=== PATIENT | female | born 1950 | race Caucasian/White ===

== ENCOUNTER 2018-09-26 05:46 | Observation (INO) | payer MEDICARE, BC ==
[~2018-09-26] VITALS: Ht 157.5 cm; Wt 73.0 kg
[2018-09-26] VITALS (30 sets, daily range): BP systolic 89–139; BP diastolic 46–78; PULSE 52–77; RESP 13–25; Ht 157.5 cm; Wt 73.0 kg
[~2018-09-26 05:46] MED LIST: ALPR0.25 PO; ASPI-817 PO; ASPI-831 PO; BIOT5000 PO; CALCIUM + D3 PO; CRAN300T PO; CYCL10TA7 PO; DOCU-144 PO; GLUC15006 PO; LACT1CAP28 PO; MELO7.5T38 PO; PRIMROSE OIL PO; SIMV20TA2 PO; [UNRECOGNIZED DRUG - OTHER] PO
[2018-09-26] MEDS ORDERED: CEFAZOLIN 2 GM/50 ML (PMX) 50 ML IVPB SCH (05:51)
[2018-09-26] MEDS ORDERED: LACTATED RINGER'S 1,000 ML IV* SCH (06:00)
[2018-09-26] MEDS ORDERED: POLYMYXIN/BACITRACIN 1L IRRIG ONE (06:45)
[2018-09-26] MEDS ORDERED: GELATIN SIZE 100 SPONGE ONE (06:45)
[2018-09-26] MEDS ORDERED: BUPIVACAINE 0.25% (MPF) 30 ML INJ ONE (06:45)
[2018-09-26] MEDS ORDERED: THROMBIN (BOVINE) 5,000 UNIT VIAL TP ONE (06:45)
--- NOTE | 2018-09-26 06:54 | PN ---
Date/Time of Note Date/Time of Note DATE: 09/26/18 TIME: 06:53 Assessment/Plan Lines/Catheters IV Catheter Type (from Nrsg): Peripheral IV Subjective 24 Hr Interval Summary The patient is postop day #2 following a multilevel laminectomy from T4-T11 for excision of multiple intraspinal extradural cysts. She is resting comfortably in bed. Neurovascular structures are intact distally. Her Hemovac drainage is minimal, and I will discontinue her Hemovac later this morning and change her dressing. She made reasonable progress with physical therapy yesterday, and I anticipate she may be cleared for discharge later today. She has been given strict discharge precautions and instructions as well as follow-up arrangements. She is afebrile. Exam/Review of Systems Vital Signs Vitals Vital Signs Date Temp Pulse Resp B/P (MAP) Pulse Ox O2 O2 Flow FiO2 Time Delivery Rate 09/26/18 97.8 74 16 139/78 100 Room Air 06:29 (98) PEDRO PABLO BRASHER MD Sep 26, 2018 06:54
--- NOTE | 2018-09-26 06:55 | HPN ---
Date/Time of Note Date/Time of Note DATE: 09/26/18 TIME: 06:55 Interval H&P Admission Note Pt. seen H&P reviewed: No system changes PEDRO PABLO BRASHER MD Sep 26, 2018 06:55
--- NOTE | 2018-09-26 07:01 | PREAC ---
Date/Time of Note Date/Time of Note DATE: 09/26/18 TIME: 06:59 Anesthesia Eval and Record Evaluation Time Pre-Procedure Interview DATE: 09/26/18 TIME: 06:59 Age 68 Sex female NPO: 8 hrs Preoperative diagnosis Lumbar Radiculopathy Planned procedure Lumabr 3-4 Decompression and laminectomy Past Medical History Past Medical History: Includes Cardio: Dyslipidemia Pulm: Asthma GI: Obesity Surgery & Anesthesia Issues No known issue Meds Anticoagulation: No Beta Kisha within 24 hr: No Reason Beta Kisha not given: Pt. not on B-Kisha Reported Medications Alprazolam* (Xanax*) 0.25 Mg Tablet, 0.25 MG PO QHS PRN for SLEEP, TAB 09/21/18 Cyclobenzaprine Hcl* (Cyclobenzaprine Hcl*) 10 Mg Tablet, 10 MG PO PRN for PAIN, #60 TAB 09/21/18 Meloxicam* (Meloxicam*) 7.5 Mg Tablet, 7.5 MG PO DAILY PRN for PAIN, #30 TAB 09/21/18 Docusate Sodium* (Colace*) 100 Mg Capsule, 100 MG PO QHS, #60 CAP 09/21/18 Lactobacillus Rhamnosus GG (Culturelle) 1 Each Capsule, 1 EACH PO QHS, CAP 09/21/18 Aspirin* (Aspirin* EC) 81 Mg Tablet.dr, 81 MG PO DAILY, TAB 09/21/18 Aspirin (Aspirin) 81 Mg Chew, 81 MG PO DAILY, TAB.CHEW 09/21/18 Cranberry Extract (Cranberry) 300 Mg Tablet, 300 MG PO QHS, TAB 09/21/18 Simvastatin (Simvastatin) 20 Mg Tablet, 20 MG PO QHS, #30 TAB 09/21/18 [Calcium + D3] No Conflict Check, 600 MG PO BID 09/21/18 [[place] Oil] No Conflict Check, 1 PO QAM 09/21/18 [Super Silica Plus] No Conflict Check, 1 TAB PO QAM 09/21/18 Biotin (Biotin) 5,000 Mcg Tab.rapdis, 5000 MCG PO QAM 09/21/18 Glucosamine Hcl (Glucosamine Hcl) 1,500 Mg Tablet, 1500 MG PO QAM, TAB 09/21/18 Current Medications Lactated Ringer's 1,000 ml @ 0 mls/hr Q0M IV* ; Start 09/26/18 at 06:00 Meds reviewed: Yes Allergies Coded Allergies: No Known Drug Allergies (Verified Allergy, Unknown, 09/21/18) Allergies Reviewed: Yes Labs/Studies Labs Reviewed: Reviewed by anesthesiologist Blood Bank Test 09/26/18 05:39 Blood Product Summary Counts test: N/A Studies: ECG (n/a), CXR (n/a) Pre-procedure Exam Last vitals Vital Signs Date Temp Pulse Resp B/P (MAP) Pulse Ox O2 O2 Flow FiO2 Time Delivery Rate 09/26/18 97.8 74 16 139/78 100 Room Air 06:29 (98) Airway: Adequate mouth opening, Adequate thyromental dist Mallampati: Mallampati II Teeth: Normal Lung: Normal Heart: Normal ASA Physical Status ASA physical status: 2 Emergency: None Planned Anesthetic General/MAC: ETT Planned Pain Management Parenteral pain med Pre-operative Attestations Prior to commencing anesthesia and surgery, the patient was re-evaluated, there was verification of: *The patient's identity *The results of appropriate recent lab work and preoperative vital signs *The above evaluation not changing prior to induction *Anesthetic plan, risk benefits, alternative and complications discussed with patient/family; questions answered; patient/family understands, accepts and wishes to proceed. KYRA CABRERA MD Sep 26, 2018 07:01
[2018-09-26] MEDS ORDERED: MIDAZOLAM 1 MG/ML 2 ML INJ ONE (07:04)
[2018-09-26] MEDS ORDERED: ROCURONIUM 50 MG INJ ONE (07:04)
[2018-09-26] MEDS ORDERED: PROPOFOL 20 ML ONE (07:04)
[2018-09-26] MEDS ORDERED: METOCLOPRAMIDE 10 MG INJ ONE (07:15)
[2018-09-26] MEDS ORDERED: ONDANSETRON 4 MG INJ ONE (07:15)
[2018-09-26] MEDS ORDERED: DEXAMETHASONE 4 MG/ML 5 ML INJ ONE (07:15)
[2018-09-26] MEDS ORDERED: PHENYLephrine (100 MCG/ML) 5ML SYG ONE (07:17)
[2018-09-26] MEDS ORDERED: HETASTARCH 6% NACL 500 ML ONE (08:16)
[2018-09-26] MEDS ORDERED: NEOSTIGMINE 10 MG INJ ONE (08:20)
[2018-09-26] MEDS ORDERED: GLYCOPYRROLATE 0.4 MG INJ ONE (08:20)
--- NOTE | 2018-09-26 09:22 | PAC ---
Date/Time of Note Date/Time of Note DATE: 09/26/18 TIME: 09:22 Post-Anesthesia Notes Post-Anesthesia Note Last documented vital signs Vital Signs Date Temp Pulse Resp B/P (MAP) Pulse Ox O2 O2 Flow FiO2 Time Delivery Rate 09/26/18 97.8 74 16 139/78 100 Room Air 09:29 (98) Activity: WNL Respiratory function: WNL Cardiovascular function: WNL Mental status: Baseline Pain reasonably controlled: Yes Hydration appropriate: Yes Nausea/Vomiting absent: Yes KYRA CABRERA MD Sep 26, 2018 09:22
[2018-09-26] MEDS ORDERED: hydrALAzine 20 MG INJ IV PRN (09:30)
[2018-09-26] MEDS ORDERED: OXYCODONE/ACETAMINOPHEN (5/325) TAB PO PRN ×2 (09:30)
[2018-09-26] MEDS ORDERED: ONDANSETRON 4 MG INJ IV PRN ×2 (09:30→10:00)
[2018-09-26] MEDS ORDERED: ALBUTEROL 0.083% (NEB) 2.5 MG/3 ML AMP HHN PRN (09:30)
[2018-09-26] MEDS ORDERED: DIPHENHYDRAMINE 50 MG INJ IV PRN (09:30)
[2018-09-26] MEDS ORDERED: FENTAnyl 50 MCG/ML VIAL IV PRN ×3 (09:30)
[2018-09-26] MEDS ORDERED: LABETALOL HCL 20MG INJ IV PRN (09:30)
[2018-09-26] MEDS ORDERED: METOCLOPRAMIDE 10 MG INJ IV PRN (09:30)
[2018-09-26] MEDS ORDERED: MEPERIDINE 25 MG INJ IV PRN (09:30)
[2018-09-26] MEDS ORDERED: HYDROmorphONE 1 MG/5 ML IV SYRINGE IV PRN ×3 (09:30)
[2018-09-26] MEDS ORDERED: ALPRAZOLAM 0.25 MG TAB PO PRN (09:30)
[2018-09-26] MEDS ORDERED: EPHEDrine SULFATE 50 MG/5 ML SYG IV PRN (09:30)
--- NOTE | 2018-09-26 09:48 | SIPON ---
Date/Time of Note Date/Time of Note DATE: 09/26/18 TIME: 09:41 Operative Report Preoperative Diagnosis Lumbar spinal stenosis at L3 and L4 Postoperative Diagnosis Same Operation/Procedure Performed Central decompressive laminectomy at L3 Central decompressive laminectomy at L4 Medial facetectomy and foraminotomy L3-4 and L4-5 bilaterally Cosmetic wound closure (6 cm) Lateral localizing lumbar radiographs (2) Intraoperative nerve monitoring (2.5 hours) Surgeon see signature line assistant attorney general Nithya Bright INSTALLATIONS INSPECTOR Anesthesia: general Estimated blood loss: 100 - 150 ml's Transfusion Required none Specimen Spinous process L3 and L4 Grafts/Implants none Complications none PEDRO PABLO BRASHER MD Sep 26, 2018 09:48
[2018-09-26] MEDS ORDERED: HYDROCODONE/APAP (5/325) TAB PO PRN ×2 (10:00)
[2018-09-26] MEDS ORDERED: AL HYDROX/MG HYDROX/SIMETH 30 ML CUP PO PRN (10:00)
[2018-09-26] MEDS ORDERED: DIAZEPAM 5 MG TAB PO PRN (10:00)
[2018-09-26] MEDS ORDERED: BETHANECHOL 25 MG TAB PO PRN (10:00)
[2018-09-26] MEDS ORDERED: NALOXONE (0.4 MG/ML) INJ IV PRN (10:00)
[2018-09-26] MEDS ORDERED: HYDROmorphONE 0.2 MG/ML PCA IV SCH (10:00)
[2018-09-26] MEDS ORDERED: CEPASTAT LOZENGE MT PRN (10:00)
[2018-09-26] MEDS ORDERED: DIPHENHYDRAMINE 50 MG CAP PO PRN (10:00)
[2018-09-26] MEDS ORDERED: PROCHLORPERAZINE 10 MG TAB PO PRN (10:00)
[2018-09-26] MEDS ORDERED: NACL 0.9% 3 ML SYG IV SCH (10:00)
[2018-09-26] MEDS ORDERED: TRIMETHOBENZAMIDE 100 MG/ML VIAL IM PRN (10:00)
[2018-09-26] MEDS ORDERED: ZOLPIDEM 5 MG TAB PO PRN (10:00)
[2018-09-26] MEDS ORDERED: DIAZEPAM 5 MG/ML SYG IM PRN (10:00)
[2018-09-26] MEDS ORDERED: EPHEDrine 50 MG INJ ONE (10:38)
--- NOTE | 2018-09-26 12:31 | OPR ---
DATE OF OPERATION: 09/26/2018 PREOPERATIVE DIAGNOSIS: Lumbar spinal stenosis at L3 and L4. POSTOPERATIVE DIAGNOSIS: Lumbar spinal stenosis at L3 and L4. OPERATIVE PROCEDURES: 1. Central decompressive laminectomy at L3. 2. Central decompressive laminectomy at L4. 3. Medial facetectomy and foraminotomy at L3 to L4 and L4 to L5 bilaterally. 4. Cosmetic wound closure (6 cm). 5. Lateral localized lumbar radiographs (2). 6. Intraoperative nerve monitoring (2-1/2 hours) SURGEON: Lb Galo MD RISK ANALYST: LOIDA Shabazz ANESTHESIA: General endotracheal. ANESTHESIOLOGIST: lAlan Henderson MD ESTIMATED BLOOD LOSS: 100 mL - none replaced. DRAINS: Two medium Hemovac drains were employed. COMPLICATIONS: None. PERTINENT HISTORY AND PHYSICAL: This is a 68-year-old female with severe back and bilateral leg pain , right greater than left, which have been unrelieved by conservative management. She has undergone a number of diagnostic studies including an MRI of the lumbar spine, which demonstrated a degenerativ e spondylolisthesis at L3 to L4 with severe stenosis at L3 and moderate stenosis at L4. Treatment op tions discussed with the patient, she elected to proceed with surgery. OPERATIVE FINDINGS AT SURGERY: Degenerative spinal disease at L3 to L4 with severe stenosis at L3 an d moderate stenosis at L4 was confirmed. The baseline intraoperative nerve monitoring revealed a dec rease in the L2 potentials bilaterally of 10%, the L3 potentials bilaterally of 20%, the L4 potential on the left of 40%, the L4 potential on the right of 20% and the L5 potentials were down 10% bilater ally. These all returned to normal at the completion of surgery. OPERATIVE PROCEDURE IN DETAILS: With the patient in supine position after satisfactory induction of general endotracheal anesthesia by Dr. Henderson, the patient was turned to the prone kneeling position on the Mary Ann frame. All pressure points were carefully padded. The back was prepped and draped in usual sterile fashion. Athrombic pumps were applied to the legs below the knees to prevent venous stasis during and after procedure. An indwelling Green catheter was also placed preoperatively to f acilitate bladder drainage during and after procedure. Two spinal needles were placed next to what w as felt to be the L3 and L4 spinous processes. Lateral roentgenograms were taken which confirmed liz tomic localization. A 6 cm incision then carried midline from L3 to L4 through skin and subcutaneous tissue to deep fascia after skin was infiltrated with 0.25% Marcaine without epinephrine for postope rative analgesia. Superficial retractors were placed and hemostasis was secured with electrocautery. Throughout the procedure, copious amounts of antibacterial irrigating solution were used to periodi reno irrigate the wound. The fascia was incised in midline with a hot knife and a bilateral subperi osteal dissection was carried out from L3 to L4. Deep retractors were placed and deep hemostasis was secured with electrocautery. A second intraoperative radiograph was taken with Lucas clamps placed in what was felt to be the spinous process of L3 and L4. This was confirmed with second x-ray. A c entral decompressive laminectomy at L4 and L3 was then carried out using a Roberth right-angle bone r ongeur, Leksell rongeur, Kerrison punches and curettes. Ligamentum flavum was excised with sharp dis section. The operating microscope was moved into place. A medial facetectomy and foraminotomy was t hen accomplished at L3 to L4 and L4 to L5 bilaterally using a small hand osteotome, mallet, Kerrison punches and curettes. The epidural hemostasis was secured with bipolar electrocautery on low setting . The anesthesiologist was asked to perform a Valsalva maneuver at 40 mmHg and no spinal fluid leak was noted. The wound was then closed in layers over 2 medium Hemovac drains, one below the fascia, o ne above the fascia using #1 Vicryl [id number] approximating #1 Stratafix sutures on deep paralu mbar musculature and deep fascia of back, 2-0 Stratafix sutures in subcutaneous tissue and a 4-0 Vicr yl subcuticular cosmetic closing suture on the skin. Dermabond and sterile compressive dressings wer e applied. The patient having tolerated procedure well, was then turned to the supine position onto her bed and extubated by Dr. Henderson. She was transported to the recovery room in satisfactory condi tion. At the conclusion of procedure, sponge, instrument, and needle counts were all correct. NEED FOR COMPUTER ART INSTRUCTOR: During this spinal surgical procedure, my licensed loan officer assistant was used to retract and protect the spinal nerves and dural sac. My licensed loan officer assistant also employed the suction catheters to laura marshal blood from the surgical field to improve visualization of the neural structures. The licensed loan officer assistant was medically necessary to facilitate the completion of the surgery in a safe and expeditious manner. State of [place] regulations, as well as hospital bylaws, preclude the use of non-licensed health care personnel such as operating room technicians, to perform these functions. Throughout the procedure, neural monitoring was carried out by [employer] using EMG, SSEP and M EP monitoring of the L2, L3, L4, L5 and S1 nerve roots bilaterally along with spinal cord potentials. These were interpreted in real time by Dr. Bar Hernandes. Dictated By: LB GALO MD TM/NTS Conf#: [id number] DID#: [id number] CC: LOLA WHITLEY MD;*[facility]*
--- NOTE | 2018-09-26 13:38 | CONS ---
Assessment/Plan Assessment/Plan Problems: (1) Pure hypercholesterolemia Status: Chronic Comment: Cont. statin daily (2) Constipation Status: Chronic Comment: Cont. colace, miralax, culturelle. Methylnaltrexone prn (3) Insomnia Status: Chronic Comment: Cont. alprazolam. (4) Personal history of other venous thrombosis and embolism Status: Chronic Comment: Hold all forms of heparin. Use SCD's continuously and consider continuing ASA if ok w/ primary team (5) Spinal stenosis of lumbar region with radiculopathy Status: Resolved Comment: Per primary team (6) Status post lumbar laminectomy Status: Acute Comment: Doing well POD#0. PT and pain control per primary team. Pt. w/ h/o DVT so SCD's must be maintained. Cannot get LMWH at this time while post-op. Will d/w primary team re: continuing on ASA or if needs to be held. Consultation Date/Type/Reason Admit Date/Time Sep 26, 2018 at 05:46 Date of Consultation: Sep 26, 2018 Type of Consult Medicine Reason for Consultation Medical Management Requesting Provider: PEDRO PABLO GALO MD Date/Time of Note DATE: 09/26/18 TIME: 13:30 Hx of Present Illness 68 y/o C F w/ h/o DVT x 3, hyperlipidemia, insomnia, chronic constipation in [facility] [place] until the last 3 years when she developed back pain. Dr. Galo suggesting surgery but pt. resistant. Did not want to have it. However, recently developed BLE weakness and pain. Could not walk through the supermarket or stand for any great length of time. Decided to have lumbar lami as suggested by ortho. Now s/p surgery and POD#0 and doing well. No complaints. Constitutional: no complaints, improved Eyes: no complaints ENT: no complaints Respiratory: no complaints Cardiovascular: no complaints Gastrointestinal: no complaints Genitourinary: no complaints Musculoskeletal: no complaints Neurologic: no complaints Past Medical History Medical History: deep vein thrombosis, high cholesterol Home Meds Reported Medications Alprazolam* (Xanax*) 0.25 Mg Tablet, 0.25 MG PO QHS PRN for SLEEP, TAB 09/21/18 Cyclobenzaprine Hcl* (Cyclobenzaprine Hcl*) 10 Mg Tablet, 10 MG PO PRN for PAIN, #60 TAB 09/21/18 Meloxicam* (Meloxicam*) 7.5 Mg Tablet, 7.5 MG PO DAILY PRN for PAIN, #30 TAB 09/21/18 Docusate Sodium* (Colace*) 100 Mg Capsule, 100 MG PO QHS, #60 CAP 09/21/18 Lactobacillus Rhamnosus GG (Culturelle) 1 Each Capsule, 1 EACH PO QHS, CAP 09/21/18 Aspirin* (Aspirin* EC) 81 Mg Tablet.dr, 81 MG PO DAILY, TAB 09/21/18 Aspirin (Aspirin) 81 Mg Chew, 81 MG PO DAILY, TAB.CHEW 09/21/18 Cranberry Extract (Cranberry) 300 Mg Tablet, 300 MG PO QHS, TAB 09/21/18 Simvastatin (Simvastatin) 20 Mg Tablet, 20 MG PO QHS, #30 TAB 09/21/18 [Calcium + D3] No Conflict Check, 600 MG PO BID 09/21/18 [Homestead Oil] No Conflict Check, 1 PO QAM 09/21/18 [Super Silica Plus] No Conflict Check, 1 TAB PO QAM 09/21/18 Biotin (Biotin) 5,000 Mcg Tab.rapdis, 5000 MCG PO QAM 09/21/18 Glucosamine Hcl (Glucosamine Hcl) 1,500 Mg Tablet, 1500 MG PO QAM, TAB 09/21/18 Medications Current Medications Lactated Ringer's 1,000 ml @ 0 mls/hr Q0M IV* ; Start 09/26/18 at 06:00 Alprazolam (Xanax) 0.25 mg QHS PRN PO SLEEP; Start 09/26/18 at 09:30 Aspirin (Aspirin) 81 mg DAILY PO ; Start 09/27/18 at 09:00 Docusate Sodium (Colace) 100 mg QHS PO ; Start 09/26/18 at 21:00 Lactobacillus Acidophilus/ Rhamnosus (Culturelle) 1 cap QHS PO ; Start 09/26/18 at 21:00 Atorvastatin Calcium (Lipitor) 20 mg HS PO ; Start 09/26/18 at 21:00 Hydromorphone HCl (Dilaudid) 0.2 mg PACU PRN IV MILD PAIN 1-3; Start 09/26/18 at 09:30; Stop 09/26/18 at 15:00 Hydromorphone HCl (Dilaudid) 0.4 mg PACU PRN IV MOD PAIN 4-6 Last administered on 09/26/18at 10:06; Admin Dose 0.4 MG; Start 09/26/18 at 09:30; Stop 09/26/18 at 15:00 Hydromorphone HCl (Dilaudid) 0.6 mg PACU PRN IV SEVERE PAIN 7-10; Start 09/26/18 at 09:30; Stop 09/26/18 at 15:00 Fentanyl (Sublimaze) 25 mcg PACU ORDER PRN IV MILD PAIN 1-3; Start 09/26/18 at 09:30; Stop 09/26/18 at 15:00 Fentanyl (Sublimaze) 50 mcg PACU ORDER PRN IV MOD PAIN 4-6 Last administered on 09/26/18at 10:05; Admin Dose 50 MCG; Start 09/26/18 at 09:30; Stop 09/26/18 at 15:00 Fentanyl (Sublimaze) 75 mcg PACU ORDER PRN IV SEVERE PAIN 7-10; Start 09/26/18 at 09:30; Stop 09/26/18 at 15:00 Oxycodone/ Acetaminophen (Percocet (5/ 325)) 1 tab PACU ORDER PRN PO .PAIN 1-5; Start 09/26/18 at 09:30; Stop 09/26/18 at 15:00 Oxycodone/ Acetaminophen (Percocet (5/ 325)) 2 tab PACU ORDER PRN PO .PAIN 6-10; Start 09/26/18 at 09:30; Stop 09/26/18 at 15:00 Ondansetron HCl (Zofran Inj) 4 mg PACU ORDER PRN IV NAUSEA/VOMITING Last administered on 09/26/18at 10:05; Admin Dose 4 MG; Start 09/26/18 at 09:30; Stop 09/26/18 at 15:00 Metoclopramide HCl (Reglan) 10 mg PACU ORDER PRN IV NAUSEA/VOMITING; Start 09/26/18 at 09:30; Stop 09/26/18 at 15:00 Labetalol HCl (Labetalol) 5 mg PACU ORDER PRN IV HIGH BLOOD PRESSURE; Start 09/26/18 at 09:30; Stop 09/26/18 at 15:00 Hydralazine HCl (Apresoline) 5 mg PACU ORDER PRN IV HIGH BLOOD PRESSURE; Start 09/26/18 at 09:30; Stop 09/26/18 at 15:00 Ephedrine Sulfate 5 mg PACU ORDER PRN IV BLOOD PRESSURE SUPPORT Last administered on 09/26/18at 11:05; Admin Dose 5 MG; Start 09/26/18 at 09:30; Stop 09/26/18 at 15:00 Albuterol (Proventil 0.083% (Neb)) 2.5 mg PACU ORDER PRN HHN .WHEEZING; Start 09/26/18 at 09:30; Stop 09/26/18 at 15:00 Meperidine HCl (Demerol) 25 mg PACU ORDER PRN IV .RIGORS; Start 09/26/18 at 09:30; Stop 09/26/18 at 15:00 Diphenhydramine HCl (Benadryl) 25 mg PACU ORDER PRN IV .PRURITUS; Start 09/26/18 at 09:30; Stop 09/26/18 at 15:00 Dextrose/Sodium Chloride 1,000 ml @ 100 mls/hr Q10H IV ; Start 09/26/18 at 10:00 Acetaminophen/ Hydrocodone Bitart ([place] (5/325)) 1 tab Q4H PRN PO .PAIN 1-5; Start 09/26/18 at 10:00; Status Hold Acetaminophen/ Hydrocodone Bitart ([place] (5/325)) 2 tab Q4H PRN PO .PAIN 6-10; Start 09/26/18 at 10:00; Status Hold Cefazolin Sodium 50 ml @ 100 mls/hr Q6 IVPB ; Start 09/26/18 at 12:00; Stop 09/27/18 at 06:29 Zolpidem Tartrate (Ambien) 5 mg HS PRN PO .INSOMNIA; Start 09/26/18 at 10:00 Prochlorperazine (Compazine) 10 mg Q4H PRN PO NAUSEA/VOMITING; Start 09/26/18 at 10:00 Trimethobenzamide HCl (Tigan) 200 mg Q4H PRN IM NAUSEA/VOMITING; Start 09/26/18 at 10:00 Ondansetron HCl (Zofran Inj) 4 mg Q6H PRN IV NAUSEA/VOMITING; Start 09/26/18 at 10:00 Al Hydrox/Mg Hydrox/Simethicone (Mag-Al Plus) 15 ml Q4H PRN PO .CONSTIPATION; Start 09/26/18 at 10:00 Docusate Sodium (Colace) 100 mg BID PO ; Start 09/27/18 at 09:00 Acetaminophen (Tylenol Tab) 650 mg Q4H PRN PO TEMP GREATER THAN 101F OR ALLEN; Start 09/26/18 at 10:00 Ascorbic Acid (Vitamin C) 1,000 mg BID PO ; Start 09/27/18 at 09:00 Ferrous Sulfate (Ferrous Sulfate (Ec)) 325 mg TID PO ; Start 09/27/18 at 09:00 Ranitidine HCl (Zantac) 150 mg BID PO ; Start 09/26/18 at 21:00 Diazepam (Valium) 5 mg Q4H PRN PO .MUSCLE SPASM; Start 09/26/18 at 10:00 Diazepam (Valium) 5 mg Q4H PRN IM .MUSCLE SPASM; Start 09/26/18 at 10:00 Phenol (Cepastat Lozenge) 1 lozenge PRN PRN MT .SORE THROAT; Start 09/26/18 at 10:00 Bethanechol Chloride (Urecholine) 25 mg PRN PRN PO .UNABLE TO VOID; Start 09/26/18 at 10:00 Diphenhydramine HCl (Benadryl) 50 mg Q6H PRN PO .PRURITUS; Start 09/26/18 at 10:00 IV Flush (NS 3 ml) 3 ml PER PROTOCOL IV ; Start 09/26/18 at 10:00 Hydromorphone HCl (Dilaudid [employer]) Q4PCA IV Last administered on 09/26/18at 10:09; Admin Dose 6 MG; Start 09/26/18 at 10:00 Naloxone HCl (Narcan) 0.2 mg Q2M PRN IV RR 8 BREATHS/MIN OR LESS; Start 09/26/18 at 10:00 Methylnaltrexone Booker (Relistor) 12 mg DAILY PRN SC CONSTIPATION; Start 09/26/18 at 13:30; Status UNV Polyethylene Glycol (Miralax) 17 gm PC DINNER PO ; Start 09/26/18 at 18:55; Status UNV Miscellaneous Information (* Miscellaneous Pharmacy Order) 1 ea DAILY XX ; Start 09/27/18 at 09:00; Status UNV Allergies: Coded Allergies: No Known Drug Allergies (Verified Allergy, Unknown, 09/21/18) Past Surgical History Past Surgical Hx: other (B cataracts, B breast biopsies, B breast reductions, multi-finger trigger release, inguinal hernia repair, c-sect x 2, partial hysterectomy and MSO, hemorroid banding, knee arthroscopy) Family History Significant Family History: heart disease (IA mother, rheumatic heart disease mother, CHF in father), COPD (father), diabetes (father), other (Sjogren and MCTD in daughter) Social History bKevin MONTALVO, in [place] since 1974, laura ROMREO and RN, 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, , 2 children Alcohol Use: rarely Smoking Status: Never smoker Drug Use: none Exam/Review of Systems Exam Vitals VS - Last 72 Hours, by Label Date Temp Pulse Resp B/P (MAP) Pulse Ox O2 O2 Flow FiO2 Time Delivery Rate 09/26/18 97.5 68 18 109/57 97 12:00 (74) 09/26/18 54 19 99/52 (68) 93 Nasal 11:04 Cannula 09/26/18 66 20 113/64 99 Nasal 10:59 (80) Cannula 09/26/18 58 17 100/57 100 Nasal 10:54 (71) Cannula 09/26/18 56 17 97/51 (66) 95 Nasal 10:49 Cannula 09/26/18 60 21 89/46 (60) 99 Nasal 10:29 Cannula 09/26/18 14 10:25 09/26/18 62 21 109/56 97 Nasal 10:24 (73) Cannula 09/26/18 64 14 107/56 97 Nasal 10:22 (73) Cannula 09/26/18 52 14 99/48 (65) 87 Nasal 10:20 Cannula 09/26/18 Nasal 2.0 10:16 Cannula 09/26/18 60 17 89/58 (68) 97 Nasal 10:14 Cannula 09/26/18 54 18 102/48 94 Nasal 10:09 (66) Cannula 09/26/18 58 19 89/53 (65) 95 Nasal 09:59 Cannula 09/26/18 62 19 92/54 (67) 94 Nasal 09:54 Cannula 09/26/18 60 19 89/50 (63) 93 Nasal 09:49 Cannula 09/26/18 64 21 90/53 (65) 95 Nasal 09:44 Cannula 09/26/18 64 19 90/49 (63) 95 Nasal 09:40 Cannula 09/26/18 64 19 106/51 95 Nasal 09:39 (69) Cannula 09/26/18 66 25 95/54 (68) 97 Mask 09:34 09/26/18 70 22 98/53 (68) 94 Mask 09:29 09/26/18 98.2 09:26 09/26/18 98.2 76 13 107/58 99 Mask 09:24 (74) 09/26/18 97.8 74 16 139/78 100 Room Air 06:29 (98) Vital Signs Date Temp Pulse Resp B/P (MAP) Pulse Ox O2 O2 Flow FiO2 Time Delivery Rate 09/26/18 97.5 68 18 109/57 97 12:00 (74) 09/26/18 Nasal 11:04 Cannula 09/26/18 2.0 10:16 Constitutional: alert, oriented, obese Psych: no complaints, nl mood/affect Eyes: nl conjunctiva, EOMI, nl lids, nl sclera, PERRL ENMT: nl external ears & nose, mucosa pink and moist Neck: supple, non-tender; No bruits, No masses, No thyromegaly Respiratory: clear to auscultation, normal air movement Cardiovascular: regular rate and rhythm, nl pulses; No edema, No murmurs/extra sounds, No rub Gastrointestinal: soft, nl liver, spleen, non-tender, bowel sounds; No mass, No rebound or guarding Musculoskeletal: nl extremities to inspection Extremities: normal pulses; No cyanosis, No clubbing, No edema Neurological: ANIMAL SITTER II-XII intact, nl mental status, nl speech, nl strength Medications Medication Current Medications Lactated Ringer's 1,000 ml @ 0 mls/hr Q0M IV* ; Start 09/26/18 at 06:00 Alprazolam (Xanax) 0.25 mg QHS PRN PO SLEEP; Start 09/26/18 at 09:30 Aspirin (Aspirin) 81 mg DAILY PO ; Start 09/27/18 at 09:00 Docusate Sodium (Colace) 100 mg QHS PO ; Start 09/26/18 at 21:00 Lactobacillus Acidophilus/ Rhamnosus (Culturelle) 1 cap QHS PO ; Start 09/26/18 at 21:00 Atorvastatin Calcium (Lipitor) 20 mg HS PO ; Start 09/26/18 at 21:00 Hydromorphone HCl (Dilaudid) 0.2 mg PACU PRN IV MILD PAIN 1-3; Start 09/26/18 at 09:30; Stop 09/26/18 at 15:00 Hydromorphone HCl (Dilaudid) 0.4 mg PACU PRN IV MOD PAIN 4-6 Last administered on 09/26/18at 10:06; Admin Dose 0.4 MG; Start 09/26/18 at 09:30; Stop 09/26/18 at 15:00 Hydromorphone HCl (Dilaudid) 0.6 mg PACU PRN IV SEVERE PAIN 7-10; Start 09/26/18 at 09:30; Stop 09/26/18 at 15:00 Fentanyl (Sublimaze) 25 mcg PACU ORDER PRN IV MILD PAIN 1-3; Start 09/26/18 at 0 9:30; Stop 09/26/18 at 15:00 Fentanyl (Sublimaze) 50 mcg PACU ORDER PRN IV MOD PAIN 4-6 Last administered on 09/26/18at 10:05; Admin Dose 50 MCG; Start 09/26/18 at 09:30; Stop 09/26/18 at 15:00 Fentanyl (Sublimaze) 75 mcg PACU ORDER PRN IV SEVERE PAIN 7-10; Start 09/26/18 at 09:30; Stop 09/26/18 at 15:00 Oxycodone/ Acetaminophen (Percocet (5/ 325)) 1 tab PACU ORDER PRN PO .PAIN 1-5; Start 09/26/18 at 09:30; Stop 09/26/18 at 15:00 Oxycodone/ Acetaminophen (Percocet (5/ 325)) 2 tab PACU ORDER PRN PO .PAIN 6-10; Start 09/26/18 at 09:30; Stop 09/26/18 at 15:00 Ondansetron HCl (Zofran Inj) 4 mg PACU ORDER PRN IV NAUSEA/VOMITING Last administered on 09/26/18at 10:05; Admin Dose 4 MG; Start 09/26/18 at 09:30; Stop 09/26/18 at 15:00 Metoclopramide HCl (Reglan) 10 mg PACU ORDER PRN IV NAUSEA/VOMITING; Start 09/26/18 at 09:30; Stop 09/26/18 at 15:00 Labetalol HCl (Labetalol) 5 mg PACU ORDER PRN IV HIGH BLOOD PRESSURE; Start 09/26/18 at 09:30; Stop 09/26/18 at 15:00 Hydralazine HCl (Apresoline) 5 mg PACU ORDER PRN IV HIGH BLOOD PRESSURE; Start 09/26/18 at 09:30; Stop 09/26/18 at 15:00 Ephedrine Sulfate 5 mg PACU ORDER PRN IV BLOOD PRESSURE SUPPORT Last administered on 09/26/18at 11:05; Admin Dose 5 MG; Start 09/26/18 at 09:30; Stop 09/26/18 at 15:00 Albuterol (Proventil 0.083% (Neb)) 2.5 mg PACU ORDER PRN HHN .WHEEZING; Start 09/26/18 at 09:30; Stop 09/26/18 at 15:00 Meperidine HCl (Demerol) 25 mg PACU ORDER PRN IV .RIGORS; Start 09/26/18 at 09:30; Stop 09/26/18 at 15:00 Diphenhydramine HCl (Benadryl) 25 mg PACU ORDER PRN IV .PRURITUS; Start 09/26/18 at 09:30; Stop 09/26/18 at 15:00 Dextrose/Sodium Chloride 1,000 ml @ 100 mls/hr Q10H IV ; Start 09/26/18 at 10:00 Acetaminophen/ Hydrocodone Bitart ([place] (5/325)) 1 tab Q4H PRN PO .PAIN 1-5; Start 09/26/18 at 10:00; Status Hold Acetaminophen/ Hydrocodone Bitart ([place] (5/325)) 2 tab Q4H PRN PO .PAIN 6-10; Start 09/26/18 at 10:00; Status Hold Cefazolin Sodium 50 ml @ 100 mls/hr Q6 IVPB ; Start 09/26/18 at 12:00; Stop 09/27/18 at 06:29 Zolpidem Tartrate (Ambien) 5 mg HS PRN PO .INSOMNIA; Start 09/26/18 at 10:00 Prochlorperazine (Compazine) 10 mg Q4H PRN PO NAUSEA/VOMITING; Start 09/26/18 at 10:00 Trimethobenzamide HCl (Tigan) 200 mg Q4H PRN IM NAUSEA/VOMITING; Start 09/26/18 at 10:00 Ondansetron HCl (Zofran Inj) 4 mg Q6H PRN IV NAUSEA/VOMITING; Start 09/26/18 at 10:00 Al Hydrox/Mg Hydrox/Simethicone (Mag-Al Plus) 15 ml Q4H PRN PO .CONSTIPATION; Start 09/26/18 at 10:00 Docusate Sodium (Colace) 100 mg BID PO ; Start 09/27/18 at 09:00 Acetaminophen (Tylenol Tab) 650 mg Q4H PRN PO TEMP GREATER THAN 101F OR ALLEN; St art 09/26/18 at 10:00 Ascorbic Acid (Vitamin C) 1,000 mg BID PO ; Start 09/27/18 at 09:00 Ferrous Sulfate (Ferrous Sulfate (Ec)) 325 mg TID PO ; Start 09/27/18 at 09:00 Ranitidine HCl (Zantac) 150 mg BID PO ; Start 09/26/18 at 21:00 Diazepam (Valium) 5 mg Q4H PRN PO .MUSCLE SPASM; Start 09/26/18 at 10:00 Diazepam (Valium) 5 mg Q4H PRN IM .MUSCLE SPASM; Start 09/26/18 at 10:00 Phenol (Cepastat Lozenge) 1 lozenge PRN PRN MT .SORE THROAT; Start 09/26/18 at 10:00 Bethanechol Chloride (Urecholine) 25 mg PRN PRN PO .UNABLE TO VOID; Start 09/26/18 at 10:00 Diphenhydramine HCl (Benadryl) 50 mg Q6H PRN PO .PRURITUS; Start 09/26/18 at 10:00 IV Flush (NS 3 ml) 3 ml PER PROTOCOL IV ; Start 09/26/18 at 10:00 Hydromorphone HCl (Dilaudid VAT [employer]) Q4PCA IV Last administered on 09/26/18at 10:09; Admin Dose 6 MG; Start 09/26/18 at 10:00 Naloxone HCl (Narcan) 0.2 mg Q2M PRN IV RR 8 BREATHS/MIN OR LESS; Start 09/26/18 at 10:00 Methylnaltrexone Booker (Relistor) 12 mg DAILY PRN SC CONSTIPATION; Start 09/26/18 at 13:30; Status UNV Polyethylene Glycol (Miralax) 17 gm PC DINNER PO ; Start 09/26/18 at 18:55; Status UNV Miscellaneous Information (* Miscellaneous Pharmacy Order) 1 ea DAILY XX ; Start 09/27/18 at 09:00; Status UNV LOLA WHITLEY MD Sep 26, 2018 13:38
[2018-09-26] MEDS: CEFAZOLIN 1 GM/50 ML (PMX) 50 ML IVPB SCH ×2 (14:44→19:08)
[2018-09-26] MEDS: DEXTROSE 5%-0.45% NACL 1,000 ML IV SCH ×2 (14:44→20:00)
[2018-09-26] MEDS: POLYETHYLENE GLYCOL 17 GM PACKET PO SCH (19:08)
[2018-09-26] MEDS: LACTOBACILLUS RHAMNOSUS CAP PO SCH (21:40)
[2018-09-26] MEDS: RANITIDINE 150 MG TAB PO SCH (21:40)
[2018-09-26] MEDS: ATORVASTATIN 20 MG TAB PO SCH (21:40)
[2018-09-26] MEDS: DOCUSATE SODIUM 100 MG CAP PO SCH (21:40)
[2018-09-26] MEDS: ALPRAZOLAM 0.5 MG TAB PO PRN (23:18)
[2018-09-27 00:05] VITALS: BP_SYST 94; BP_SYST 97; BP_DIAS 54; PULSE 76; RESP 18
[2018-09-27] MEDS: CEFAZOLIN 1 GM/50 ML (PMX) 50 ML IVPB SCH ×2 (00:11→06:11)
[2018-09-27] MEDS: DEXTROSE 5%-0.45% NACL 1,000 ML IV SCH (01:56)
[2018-09-27 04:30] VITALS: BP 96/52; PULSE 79; RESP 17
--- NOTE | 2018-09-27 07:17 | PN ---
Date/Time of Note Date/Time of Note DATE: 09/27/18 TIME: 07:15 Assessment/Plan Lines/Catheters IV Catheter Type (from Nrs): Peripheral IV Green in Place (from Nrsg): Yes Subjective 24 Hr Interval Summary The patient is postop day #1 following a decompressive laminectomy at L3 and L4. She is resting comfortably in bed. Neurovascular structures are intact dista lly. She is afebrile. A.m. lab work is unremarkable. A Green catheter is in place. Her Hemovac drainage was minimal (5 cc), and was discontinued. Her wound is clean and dry and was redressed. She will be mobilized as tolerated by physical therapy, and discharged home when cleared. She has been given strict discharge precautions and instructions as well as follow-up arrangements. Due to the nature of her surgery, she is unable to begin aspirin or anticoagulation until 5 days postop. Exam/Review of Systems Vital Signs Vitals Vital Signs Date Temp Pulse Resp B/P (MAP) Pulse Ox O2 O2 Flow FiO2 Time Delivery Rate 09/27/18 17 05:00 09/27/18 98.0 79 96/52 (67) 96 Room Air 04:30 09/26/18 2.0 20:40 Intake and Output 09/26/18 09/26/18 09/27/18 1515:00 23:00 07:00 IntakeIntake Total 2200 ml 1000 ml OutputOutput Total 250 ml 1540 ml 5 ml BalanceBalance 1950 ml -540 ml -5 ml Results Result Diagram: 09/27/18 0425 09/27/18 0425 PEDRO PABLO BRASHER MD Sep 27, 2018 07:17
[2018-09-27 07:24] VITALS: BP 96/51; PULSE 62
[2018-09-27] MEDS ORDERED: BETHANECHOL 25 MG TAB PO PRN (08:00)
[2018-09-27] MEDS: RANITIDINE 150 MG TAB PO SCH ×2 (08:48→20:52)
[2018-09-27] MEDS: ACETAMINOPHEN 325 MG TAB PO PRN ×2 (08:48→17:14)
[2018-09-27] MEDS: ASCORBIC ACID 500 MG TAB PO SCH ×2 (08:48→20:53)
[2018-09-27] MEDS: FERROUS SULFATE (EC) 325 MG TAB PO SCH ×3 (08:49→20:53)
[2018-09-27] MEDS: DOCUSATE SODIUM 100 MG CAP PO SCH ×3 (08:49→20:52)
[2018-09-27] MEDS ORDERED: ASPIRIN 81 MG TAB PO SCH (09:00)
[2018-09-27] MEDS ORDERED: HYDROCODONE/APAP (5/325) TAB PO PRN (10:30)
[2018-09-27] MEDS: METHYLNALTREXONE 12 MG/0.6 ML VIAL SC PRN (11:02)
[2018-09-27] MEDS: HYDROCODONE/APAP (5/325) TAB PO PRN ×2 (11:09→21:00)
--- NOTE | 2018-09-27 13:37 | CONS ---
Assessment/Plan Assessment/Plan Problems: (1) Pure hypercholesterolemia Status: Chronic Comment: Cont. statin (2) Constipation Status: Chronic Comment: Cont. meds for intestinal motility to prevent post-narcotic ileus (3) Insomnia Status: Chronic Comment: Sparks and alprazolam for sleep (4) Personal history of other venous thrombosis and embolism Status: Chronic Comment: Cont. SCD's. ASA and heparin on hold per ortho. Pt. encouraged to ambulate and move her legs after d/c. (5) Spinal stenosis of lumbar region with radiculopathy Status: Resolved Comment: Per primary team (6) Status post lumbar laminectomy Status: Acute Comment: Doing well POD#1. Ambulating w/ PT. BP is in acceptable range. Pain moderately controlled. Pt. ok from med standpoint for when primary team clears her for d/c. Consultation Date/Type/Reason Admit Date/Time Sep 26, 2018 at 05:46 Initial Consult Date 09/26/18 Type of Consult Medicine Reason for Consultation Medical Management Requesting Provider: PEDRO PABLO BRASHER MD Date/Time of Note DATE: 09/27/18 TIME: 13:33 24 HR Interval Summary Constitutional: no complaints Detailed Summary Respiratory: no complaints Cardiovascular: no complaints Gastrointestinal: nausea (from dilaudid; responded to zofran and zantac) Genitourinary: no complaints Musculoskeletal: back pain (but tolerable w/ pain meds; ambulating w/ PT. BP was low so afraid to take IV pain meds) Neurologic: no complaints Exam/Review of Systems Exam Vitals VS - Last 72 Hours, by Label Date Temp Pulse Resp B/P (MAP) Pulse Ox O2 O2 Flow FiO2 Time Delivery Rate 09/27/18 98.1 62 96/51 (66) 96 07:24 09/27/18 17 05:00 09/27/18 98.0 79 17 96/52 (67) 96 Room Air 04:30 09/27/18 18 01:00 09/27/18 98.0 76 18 97/54 (68) 95 00:05 09/26/18 17 21:00 09/26/18 Nasal 2.0 20:40 Cannula 09/26/18 98.4 64 18 103/57 96 20:24 (72) 09/26/18 98.5 75 20 108/55 95 Nasal 2.0 14:45 (72) Cannula 09/26/18 98.0 77 20 101/57 97 Nasal 2.0 13:45 (72) Cannula 09/26/18 98.0 70 20 101/58 96 Nasal 2.0 13:15 (72) Cannula 09/26/18 98.5 71 20 106/55 94 Nasal 2.0 12:45 (72) Cannula 09/26/18 98.1 70 20 113/59 95 Nasal 2.0 12:30 (77) Cannula 09/26/18 98.0 69 20 118/56 95 Nasal 2.0 12:15 (76) Cannula 09/26/18 20 12:15 09/26/18 98.5 68 20 109/57 95 Nasal 2.0 12:00 (74) Cannula 09/26/18 97.5 68 18 109/57 97 12:00 (74) 09/26/18 60 19 100/49 97 Nasal 11:14 (66) Cannula 09/26/18 58 19 103/56 95 Nasal 11:09 (72) Cannula 09/26/18 54 19 99/52 (68) 93 Nasal 11:04 Cannula 09/26/18 66 20 113/64 99 Nasal 10:59 (80) Cannula 09/26/18 58 17 100/57 100 Nasal 10:54 (71) Cannula 09/26/18 56 17 97/51 (66) 95 Nasal 10:49 Cannula 09/26/18 60 21 89/46 (60) 99 Nasal 10:29 Cannula 09/26/18 14 10:25 09/26/18 62 21 109/56 97 Nasal 10:24 (73) Cannula 09/26/18 64 14 107/56 97 Nasal 10:22 (73) Cannula 09/26/18 52 14 99/48 (65) 87 Nasal 10:20 Cannula 09/26/18 Nasal 2.0 10:16 Cannula 09/26/18 60 17 89/58 (68) 97 Nasal 10:14 Cannula 09/26/18 54 18 102/48 94 Nasal 10:09 (66) Cannula 09/26/18 58 19 89/53 (65) 95 Nasal 09:59 Cannula 09/26/18 62 19 92/54 (67) 94 Nasal 09:54 Cannula 09/26/18 60 19 89/50 (63) 93 Nasal 09:49 Cannula 09/26/18 64 21 90/53 (65) 95 Nasal 09:44 Cannula 09/26/18 64 19 90/49 (63) 95 Nasal 09:40 Cannula 09/26/18 64 19 106/51 95 Nasal 09:39 (69) Cannula 09/26/18 66 25 95/54 (68) 97 Mask 09:34 09/26/18 70 22 98/53 (68) 94 Mask 09:29 09/26/18 98.2 09:26 09/26/18 98.2 76 13 107/58 99 Mask 09:24 (74) 09/26/18 97.8 74 16 139/78 100 Room Air 06:29 (98) Vital Signs Date Temp Pulse Resp B/P (MAP) Pulse Ox O2 O2 Flow FiO2 Time Delivery Rate 09/27/18 98.1 62 96/51 (66) 96 07:24 09/27/18 17 05:00 09/27/18 Room Air 04:30 09/26/18 2.0 20:40 Intake and Output 09/26/18 09/26/18 09/27/18 1414:59 22:59 06:59 IntakeIntake Total 2200 ml 1000 ml 1400 ml OutputOutput Total 250 ml 1540 ml 5 ml BalanceBalance 1950 ml -540 ml 1395 ml Constitutional: alert, oriented, obese Psych: no complaints, nl mood/affect Respiratory: clear to auscultation, normal air movement Cardiovascular: regular rate and rhythm, nl pulses; No edema, No murmurs/extra sounds, No rub Gastrointestinal: soft, nl liver, spleen, non-tender, bowel sounds; No mass, No rebound or guarding Musculoskeletal: nl extremities to inspection Extremities: normal pulses; No cyanosis, No clubbing, No edema Neurological: [employer] COMPENSATION [employer] II-XII intact, nl mental status, nl speech, nl strength Results Result Diagram: 09/27/1842409/27/185 Results 24hrs Laboratory Tests Test 09/27/18 04:25 09/27/18 08:45 Hemoglobin 10.1 L Hematocrit 31.7 L Sodium Level 138 Potassium Level 4.1 Chloride Level 108 Carbon Dioxide Level 26 Anion Gap 4 L Blood Urea Nitrogen 10 Creatinine 0.59 Est Glomerular Filtrat Rate mL/min > 60 Glucose Level 114 Calcium Level 8.5 Urine Color STRAW Urine Clarity CLEAR Urine pH 7.0 Urine Specific [place] 1.014 Urine Ketones NEGATIVE Urine Nitrite NEGATIVE Urine Bilirubin NEGATIVE Urine Urobilinogen NEGATIVE Urine Leukocyte Esterase NEGATIVE Urine Hemoglobin NEGATIVE Urine Glucose NEGATIVE Urine Total Protein NEGATIVE Medications Medication Current Medications Docusate Sodium (Colace) 100 mg QHS PO Last administered on 09/26/18 21:40; Admin Dose 100 MG; Start 09/26/18 at 21:00 Lactobacillus Acidophilus/ Rhamnosus (Culturelle) 1 cap QHS PO Last administered on 09/26/18 21:40; Admin Dose 1 CAP; Start 09/26/18 at 21:00 Atorvastatin Calcium (Lipitor) 20 mg HS PO Last administered on 09/26/18 21:40; Admin Dose 20 MG; Start 09/26/18 at 21:00 Zolpidem Tartrate (Ambien) 5 mg HS PRN PO .INSOMNIA; Start 09/26/18 at 10:00 Prochlorperazine (Compazine) 10 mg Q4H PRN PO NAUSEA/VOMITING; Start 09/26/18 at 10:00 Trimethobenzamide HCl (Tigan) 200 mg Q4H PRN IM NAUSEA/VOMITING; Start 09/26/18 at 10:00 Ondansetron HCl (Zofran Inj) 4 mg Q6H PRN IV NAUSEA/VOMITING Last administered on 09/26/18 19:51; Admin Dose 4 MG; Start 09/26/18 at 10:00 Al Hydrox/Mg Hydrox/Simethicone (Mag-Al Plus) 15 ml Q4H PRN PO .CONSTIPATION; Start 09/26/18 at 10:00 Docusate Sodium (Colace) 100 mg BID PO Last administered on 09/27/18 08:49; Admin Dose 100 MG; Start 09/27/18 at 09:00 Acetaminophen (Tylenol Tab) 650 mg Q4H PRN PO TEMP GREATER THAN 101F OR ALLEN Last administered on 09/27/18 08:48; Admin Dose 650 MG; Start 09/26/18 at 10:00 Ascorbic Acid (Vitamin C) 1,000 mg BID PO Last administered on 09/27/18 08:48; Admin Dose 1,000 MG; Start 09/27/18 at 09:00 Ferrous Sulfate (Ferrous Sulfate (Ec)) 325 mg TID PO Last administered on 09/27/18 08:49; Admin Dose 325 MG; Start 09/27/18 at 09:00 Ranitidine HCl (Zantac) 150 mg BID PO Last administered on 09/27/18 08:48; Admin Dose 150 MG; Start 09/26/18 at 21:00 Diazepam (Valium) 5 mg Q4H PRN PO .MUSCLE SPASM; Start 09/26/18 at 10:00 Diazepam (Valium) 5 mg Q4H PRN IM .MUSCLE SPASM; Start 09/26/18 at 10:00 Phenol (Cepastat Lozenge) 1 lozenge PRN PRN MT .SORE THROAT; Start 09/26/18 at 10:00 Diphenhydramine HCl (Benadryl) 50 mg Q6H PRN PO .PRURITUS; Start 09/26/18 at 10:00 IV Flush (NS 3 ml) 3 ml PER PROTOCOL IV ; Start 09/26/18 at 10:00 Naloxone HCl (Narcan) 0.2 mg Q2M PRN IV RR 8 BREATHS/MIN OR LESS; Start 09/26/18 at 10:00 Methylnaltrexone [place] (Relistor) 12 mg Q24H PRN SC CONSTIPATION Last administered on 09/27/18 11:02; Admin Dose 12 MG; Start 09/26/18 at 13:30 Polyethylene Glycol (Miralax) 17 gm PC DINNER PO Last administered on 09/26/18 19:08; Admin Dose 17 GM; Start 09/26/18 at 18:55 Miscellaneous Information (* Miscellaneous Pharmacy Order) 1 ea DAILY XX ; St art 09/27/18 at 09:00; Status UNV Alprazolam (Xanax) 0.25 mg QHS PRN PO SLEEP Last administered on 09/26/18 23:18; Admin Dose 0.25 MG; Start 09/26/18 at 23:30 Bethanechol Chloride (Urecholine) 25 mg PRN PRN PO UNABLE TO VOID Last administered on 09/27/18 08:49; Admin Dose 25 MG; Start 09/27/18 at 08:00 Acetaminophen/ Hydrocodone Bitart ([place] (5/325)) 1 tab Q4H PRN PO .PAIN 1-5 Last administered on 09/27/18 11:09; Admin Dose 1 TAB; Start 09/27/18 at 10:30 Acetaminophen/ Hydrocodone Bitart ([place] (5/325)) 2 tab Q4H PRN PO .PAIN 6-10; Start 09/27/18 at 10:30 LOLA WHITLEY MD Sep 27, 2018 13:37
[2018-09-27 14:18] VITALS: BP 93/59; PULSE 111; RESP 18
[2018-09-27 14:27] VITALS: BP 108/50; PULSE 73; RESP 18
[2018-09-27] MEDS: POLYETHYLENE GLYCOL 17 GM PACKET PO SCH (18:22)
[2018-09-27 19:30] VITALS: BP 111/52; PULSE 70; RESP 18
[2018-09-27] MEDS: LACTOBACILLUS RHAMNOSUS CAP PO SCH (20:53)
[2018-09-27] MEDS: ATORVASTATIN 20 MG TAB PO SCH (20:53)
[2018-09-27] MEDS: ALPRAZOLAM 0.5 MG TAB PO PRN (23:39)
[2018-09-28 02:14] VITALS: BP 100/52; PULSE 93; RESP 20
[2018-09-28] MEDS: ACETAMINOPHEN 325 MG TAB PO PRN (06:47)
--- NOTE | 2018-09-28 07:10 | PN ---
Date/Time of Note Date/Time of Note DATE: 09/28/18 TIME: 07:09 Assessment/Plan Lines/Catheters IV Catheter Type (from Nrs): Peripheral IV Green in Place (from Nrs): Yes Subjective 24 Hr Interval Summary The patient is postop day #2 following a decompressive laminectomy at L3 and L4. She is resting comfortably in bed. He is afebrile. Neurovascular structures are intact distally. She feels constipated, and is requesting a laxative. I anticipate she will be cleared for discharge by physical therapy later today. She has been given strict discharge precautions and instructions as well as follow-up arrangements. We will institute a bowel program this morning. Exam/Review of Systems Vital Signs Vitals Vital Signs Date Temp Pulse Resp B/P (MAP) Pulse Ox O2 O2 Flow FiO2 Time Delivery Rate 09/28/18 98.5 93 20 100/52 95 02:14 (68) 09/27/18 Room Air 04:30 09/26/18 2.0 20:40 Intake and Output 09/27/18 09/27/18 09/28/18 1515:00 23:00 07:00 IntakeIntake Total 300 ml 240 ml 420 ml BalanceBalance 300 ml 240 ml 420 ml Results Result Diagram: 09/27/18 0425 09/27/18 0425 PEDRO PABLO BRASHER MD Sep 28, 2018 07:10
[2018-09-28] MEDS ORDERED: NA PHOSPHATE/BIPHOS 133 ML ENEMA PR PRN (07:30)
[2018-09-28] MEDS ORDERED: BISACODYL 10 MG SUPP PR ONE (07:30)
[2018-09-28 07:46] VITALS: BP 110/57; PULSE 70; RESP 18
[2018-09-28] MEDS: DOCUSATE SODIUM 100 MG CAP PO SCH (08:55)
[2018-09-28] MEDS: RANITIDINE 150 MG TAB PO SCH (08:55)
[2018-09-28] MEDS: ASCORBIC ACID 500 MG TAB PO SCH (08:55)
[2018-09-28] MEDS: FERROUS SULFATE (EC) 325 MG TAB PO SCH (09:00)
[2018-09-28] MEDS: METHYLNALTREXONE 12 MG/0.6 ML VIAL SC PRN (11:22)
== END 2018-09-28 13:00 | disposition home or self-care (01) ==
LOC: INTOOBSV 05:46 → REC 05:46 → MS1 11:14
PROVIDERS: ADMIT Orthopaedic Surgery; ATTEND Orthopaedic Surgery
DX: M48.061 Spinal stenosis, lumbar region without neurogenic claudication (principal); M54.16 Radiculopathy, lumbar region; E78.00 Pure hypercholesterolemia, unspecified; K59.00 Constipation, unspecified; G47.00 Insomnia, unspecified; Z86.718 Personal history of other venous thrombosis and embolism
CPT/HCPCS: 63047; 63048; 72020; 80048; 81003; 85014; 85018; 86850; 86900; 86901; 86920; 87086; 88304; 88311; 97116; 97162; 97530; G0378; J0690; J1100; J1170; J2250; J2370; J2405; J2710; J2765; J3010; J7042; 99217